=== PATIENT | male | born 2000 | race Caucasian/White ===

== ENCOUNTER 2019-06-20 07:17 | Day surgery (SDC) | payer OTHER ==
[~2019-06-20] VITALS: Ht 182.9 cm; Wt 68.7 kg
[2019-06-20] MEDS ORDERED: IBUP-1114 PO (07:24)
[2019-06-20] MEDS ORDERED: ONDANSETRON 4MG/2ML VIAL IV ONE (08:00)
[2019-06-20] MEDS ORDERED: NS 1,000 ML IV ONE (08:00)
[2019-06-20] MEDS ORDERED: MORPHINE 4 MG/ML 1ML VIAL/SYRINGE (J2270) IV ONE (08:00)
[2019-06-20 08:01] LABS: BASO # 0.1 10^3/uL (0.0-0.2); BASO % 0.9 % (0.0-1.0); EOS # 0.2 10^3/uL (0.0-0.5); EOS % 3.2 % (0.0-3.0); HEMATOCRIT 42.5 % (42.0-52.0); HEMOGLOBIN 14.7 g/dl (13.5-17.5); LYMPH # 1.5 10^3/uL (1.5-5.0); LYMPH % 27.7 % (24.0-44.0); MEAN CORPUSCULAR HEMOGLOBIN 29.1 pg (27.0-33.0); MEAN CORPUSCULAR HGB CONC 34.6 g/dl (32.0-36.5); MEAN CORPUSCULAR VOLUME 84.2 fl (80.0-96.0); MONO # 0.4 10^3/uL (0.0-0.8); MONO % 7.4 % (0.0-5.0); NEUTROPHILS # 3.2 10^3/uL (1.5-8.5); NEUTROPHILS % 60.6 % (36.0-66.0); PLATELET COUNT, AUTOMATED 186 10^3/uL (150-450); RED BLOOD COUNT 5.05 10^6/uL (4.30-6.10); WHITE BLOOD COUNT 5.3 10^3/uL (4.0-10.0)
--- NOTE | 2019-06-20 08:05 | REP ---
It forearm: Two views. History: Pain after trauma. Findings: AP and lateral views of the right forearm demonstrate a displaced comminuted and angulated fracture of the distal radial metaphysis described in the wrist radiographs. Ulnar styloid chip fracture is seen. No proximal radial or ulnar fracture is appreciated. Electronically Signed by Timothy Hitchcock MD 06/20/2019 07:56 A
[2019-06-20 08:19] LABS: BLOOD UREA NITROGEN 12 MG/DL (7-18); CARBON DIOXIDE LEVEL 25 MEQ/L (21-32); CHLORIDE LEVEL 107 MEQ/L (98-107); CREATININE FOR GFR 1.07 MG/DL (0.70-1.30); GLUCOSE, FASTING 114 MG/DL (70-100); POTASSIUM SERUM 3.2 MEQ/L (3.5-5.1); SODIUM LEVEL 142 MEQ/L (136-145)
--- NOTE | 2019-06-20 09:58 | REP ---
BILATERAL WRIST: EIGHT VIEWS. HISTORY: Trauma. FINDINGS: Four views of each wrist demonstrate overall normal mineralization. Left wrist is normal. No fracture or subluxation is seen. On the right, there is a comminuted displaced distal radial metaphyseal fracture with marked apex volar angulation, dorsal displacement, and overriding. There is an ulnar styloid chip fracture associated with this. No carpal fractures seen. IMPRESSION: No fracture noted on the left. Displaced angulated comminuted distal radial metaphyseal fracture on the right with associated ulnar styloid chip fracture. Electronically Signed by Timothy Hitchcock MD 06/20/2019 11:24 A
[2019-06-20] MEDS ORDERED: MORPHINE 2 MG/ML 1ML VIAL (J2270) IV ONE ×2 (10:15→13:30)
[2019-06-20] MEDS ORDERED: BUPIVACAINE/EPIN 0.25% 30 ML VIAL As Ordered ONE (16:42)
[2019-06-20] MEDS ORDERED: ceFAZolin 2 GM/D5W 50 ML IV BAG (J0690 PER 500MG) As Ordered ONE (16:53)
[2019-06-20] MEDS ORDERED: ACETAMINOPHEN 1000MG 100ML IV BTL (OFIRMEV) (J0131 PER 10MG) As Ordered ONE (17:03)
[2019-06-20] MEDS ORDERED: MIDAZOLAM INJ 2MG/2ML VIAL (J2250 PER 1MG) As Ordered ONE (17:03)
[2019-06-20] MEDS ORDERED: LIDOCAINE 2% 100MG/5ML SDV (FOR ANES.) As Ordered ONE (17:03)
[2019-06-20] MEDS ORDERED: propofoL 200 MG/20 ML VIAL As Ordered ONE (17:03)
[2019-06-20] MEDS ORDERED: fentaNYL 100 MCG/2 ML INJECTION (J3010) As Ordered ONE ×2 (17:03→17:05)
[2019-06-20] MEDS ORDERED: dexameTHASONE 4 MG/ML 1ML VIAL (J1100 PER 1MG) As Ordered ONE (17:03)
[2019-06-20] MEDS ORDERED: METOCLOPRAMIDE INJ 10MG/2ML VIAL (J2765 PER 1) As Ordered ONE (17:03)
[2019-06-20] MEDS ORDERED: ONDANSETRON 4MG/2ML VIAL As Ordered ONE (17:03)
[2019-06-20] MEDS ORDERED: DESFLURANE 240 ML INHALANT As Ordered ONE (17:23)
--- NOTE | 2019-06-20 18:20 | HPE ---
DATE OF ADMISSION: 06/20/2019 CHIEF COMPLAINT: Right distal radius fracture. HISTORY OF THE PRESENT ILLNESS: This is a 18-year-old man who is in the . 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 Sustained a displaced distal radius fracture on the right side. Seen at [facility] emergency department (ED). This happened just this morning. It was splinted. He has been nothing by mouth since this morning when he had a little bit of Gatorade. PAST MEDICAL HISTORY: Healthy. MEDICATIONS: None. ALLERGIES: No known drug allergies. SURGICAL HISTORY: None. SOCIAL HISTORY: He is in the . Nonsmoker. 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 He is from [place]. His set up person is his mother, Eleni. Her number [phone]. No previous injuries to the right upper extremity. PHYSICAL EXAM: He is a well appearing 18-year-old male, appears alert and oriented times three. He is laying supine in the bed. He responds appropriately. He has no obvious deformity of his right wrist. Typical dinner fork deformity. There is minor abrasion to the volar aspect of proximal wrist overlying the flexor carpi radialis (FCR) tendon but no open injury. He has difficulty wiggling his fingers and flexing and extending his thumb, but he is able to hold his thumb out. There is normal sensation in the radial and ulnar nerve distributions; however, he appears to have a dense median nerve palsy, but he does state that more so that all his fingers are numb. Strong radial pulse. Hands warm and well perfused. No pain in the hand. Forearm compartments are soft. No pain at the elbow. Radiographs reviewed of his right wrist - AP, lateral and oblique. This shows an obvious, what appears to be mostly extra-articular transverse fracture of the distal radius in the metaphyseal region. This was displaced almost 100% dorsally. There is a minor amount of comminution volarly and dorsally. There may be a small intra-articular fragment dorsally. ASSESSMENT/PLAN: This is a 18-year-old male with severely displaced, mostly extra-articular fracture of the distal end of the radius. We talked about the pros, the cons, the risks and benefits of nonsurgical management versus closed reduction and casting, as well as immediate open reduction internal fixation with volar plating. He would like to go ahead with surgery. Specific risks include, but not limited to, infection, pain, stiffness, bleeding, damage to surrounding structures, delayed, mal or nonunion, need for further surgery, irritation of the tendons, anesthetic complications, blood clots, and other risks. We will likely also go ahead with open carpal tunnel release given his median nerve symptoms. We signed the consent form for surgery, as well as possible need for blood products, and I explained the pros, cons, risks, benefits of that to him as well. I marked the right upper extremity. We will splint him in preparation for surgery and make him nothing by mouth for now, and I will try to find urgent time in the operating theater at [facility]. He had no further questions.
[2019-06-20] MEDS ORDERED: fentaNYL 100 MCG/2 ML INJECTION (J3010) IV PRN (19:30)
[2019-06-20] MEDS ORDERED: oxyCODONE 5MG TAB PO PRN (19:30)
[2019-06-20] MEDS ORDERED: LR 1,000 ML IV SCH ×2 (19:30→19:45)
[2019-06-20] MEDS ORDERED: ONDANSETRON 4MG/2ML VIAL IV PRN ×2 (19:30→19:45)
[2019-06-20] MEDS ORDERED: PERCOCET 5MG/325MG TAB PO PRN (19:45)
[2019-06-20] MEDS ORDERED: MORPHINE 4 MG/ML 1ML VIAL/SYRINGE (J2270) IV PRN (19:45)
[2019-06-20] MEDS ORDERED: ACETAMINOPHEN TAB 650MG DOSE (2X325MG) PO PRN (19:45)
[2019-06-20 23:00] VITALS: BP 121/65
--- NOTE | 2019-06-21 08:22 | RO ---
DATE OF PROCEDURE: 06/20/2019 PREOPERATIVE DIAGNOSIS: Right distal radius fracture and acute carpal tunnel syndrome. POSTOPERATIVE DIAGNOSIS: Right distal radius fracture and acute carpal tunnel syndrome. PLAN PROCEDURE: Right distal radius open reduction internal fixation, possible open carpal tunnel release. PROCEDURE PERFORMED: Right distal radius fracture open reduction internal fixation and open carpal tunnel release. SURGEON: Dr. Prasad Maza ANESTHESIOLOGIST: Dr. Valverde STRATEGIC MANAGER: None. ANESTHESIA: General anesthetic, OPERATIVE PREAMBLE: This 18-year-old male who is in the , after he had recently moved up to [place]. He fell on an outstretched hand this morning sustaining a displaced distal radius fracture. This was causing pressure on the median nerve per clinical exam. We talked about pros, cons, risks, benefits of nonsurgical management versus closed reduction versus open reduction internal fixation with volar plating and possible open carpal tunnel release. He wished to go ahead with surgery. Specific surgical risks were discussed include but not limited infection pain, stiffness bleeding, damage to other nerves, blood vessels, neurovascular injury, delayed, mal or nonunion, hardware and tendon irritation, complex regional pain syndrome, anesthetic complications, blood clots, among other risks. He wished to ahead. We signed consent form for surgery. Reiterated the risks in preoperative holding, marked the right upper extremity and proceeded to surgery. DESCRIPTION OF PROCEDURE: Patient was brought to the operating theater. Placed supine on the operating room table. An 18-inch wrap tourniquet was applied to the right upper extremity and appropriately padded. Hand tape was used to the patient's right side. The bed was turned at 90 degrees. 2 Grams IV Ancef was administered. General anesthesia was induced. The limb was prepped and draped the usual sterile fashion allowing over 3 minutes prep solution drying time. All bony prominences were appropriately padded. Preoperative time-out was performed to confirm the patient's site and the patient's surgery. The limb was exsanguinated with sterile Esmarch tourniquet and limb elevated tourniquet inflated to 250 mmHg. I began by making a standard 4-inch incision centered overlying the Flexor Carpi Radialis (FCR) tendon just proximal to the wrist crease. We carried dissection down through skin and subcutaneous tissue insuring meticulous hemostasis. Incised the fascia and tendon sheath overlying the FCR tendon repair. I incised the sub-sheath in line with the skin incision. I identified FCR muscle belly and retracted this ulnarly. Then used periosteal elevator to elevate the pronator quadratus muscle off the volar aspect of the distal radius. I identified the fracture site. I cleared radial intervals. Periosteum appeared adequate. I had to release this from the dorsal cortex. I thoroughly irrigated the fracture site. Achieved preliminary reduction of longitudinal traction and direct manipulation of the fracture. This was quite difficult as he did still have a thick periosteum. Achieved good reduction. I selected a [employer] pre-contoured VA locking plate two-hole proximally. Placed this on the bone surface. I inserted the oblong 2.4 mm cortical screw; did not fully tightness down. I then used a 1.25-mm wire to secure the plate to the bone and secure rotation. Took AP lateral radiographs to ensure plate position on the bone. I then inserted the four distal locking screws. This measured anywhere between 20-22 mm. I took a true lateral joint view of 30 degrees tilt to ensure that none of the screws were correct. Reduction looked nice. I then fully seated the cortical positional screw. This achieved nice reduction. The then inserted the proximal locking screw as well to fully seat the plate onto the bone. Took final radiographs, AP lateral and oblique. I then saved these onto the system. I also took a 30-degree true lateral view. I then turned my attention to the carpal tunnel. I made a small 2 cm incision overlying the transverse carpal ligament in line with 4th digit. Carried dissection down through skin and subcutaneous tissue and achieved meticulous hemostasis. I incised the palmar fascia, elevated a small amount of flexor pollicis brevis (FPB) muscle belly and then incised the transverse carpal tunnel ligament in line with the skin incision, fully proximally and distally. I thoroughly irrigated this wound. I left the tourniquet down. Bleeding was hemostased. Closed subcutaneous tissue with interrupted #2-0 Vicryl suture and skin with running #3-0 Monocryl. 12 mL of 0.25% Marcaine with epinephrine was instilled in and around the incision sites. Skin was closed with running #3-0 Monocryl. Steri-Strips were applied after the wound was cleaned with dry dressing. Adaptic 4 x 8 gauze as well as ABD dressing. Sterile cast padding was applied as well as a volar plaster of estephania splint to the wrist in neutral. This was overwrapped with sterile 6-inch tiana bandage. The splint was allowed to harden. The patient's tourniquet was taken down prior to the end of the case and removed. Total tourniquet time 75 minutes. Patient was woken up from the general anesthetic, transferred off the operating table and taken postanesthetic care unit in stable condition. All sponge, needle, and instrument counts were correct. No complications. Estimated blood loss 50 mL. PLAN: The patient to be discharged home per same day surgery criteria. Given this prescription for Percocet 30 tablets 5/325 mg. The patient should elevate the wrist start immediate finger and elbow exercises with no heavy lifting or gripping with the upper extremity. I have communicated with the patient's mom Eleni. I would like to see the patient is to weeks' time and keep the splint until that time and keep it clean and dry.
--- NOTE | 2019-06-21 08:23 | REP ---
Clinical: Status post open fixation. Technique: Intraoperative fluoroscopic imaging using portable C-arm technique. Findings: Evidence for satisfactory reduction and open fixation for distal radial metaphyseal fracture. Small ulnar styloid fracture noted. Total fluoroscopic time 1 minute. Impression: Satisfactory open reduction and fixation. Electronically Signed by Armani Osorio MD 06/21/2019 08:15 A
== END 2019-06-20 23:30 | disposition home or self-care (01) ==
LOC: M ED 07:17 → M SDC 15:33
PROVIDERS: ATTEND Orthopaedic Surgery Sports Medicine
DX: S52.551A Other extraarticular fracture of lower end of right radius, initial encounter for closed fracture (principal); W01.0XXA Fall on same level from slipping, tripping and stumbling without subsequent striking against object, initial encounter; Y92.138 Other place on military base as the place of occurrence of the external cause; Y99.1 Military activity; G56.01 Carpal tunnel syndrome, right upper limb; Y93.89 Activity, other specified; Z91.81 History of falling
CPT/HCPCS: 25607; 64721; 73090; 73110; 76000; 80048; 85025; 96361; 96374; 96375; 96376; 99285; C1713; J0131; J0690; J1100; J2250; J2270; J2405; J2765; J3010; U0002

== ENCOUNTER 2021-09-29 15:41 | Emergency (ER) | payer OTHER ==
[~2021-09-29] VITALS: Ht 185.4 cm; Wt 60.1 kg
[~2021-09-29 15:41] MED LIST: IBUP-1114 PO
[2021-09-29 18:00] LABS: BACTERIA, URINE NONE SEEN; MUCUS, URINE SMALL AMOUNT (NEGATIVE); RBC, URINE 0-1 /hpf (0-3)
[2021-09-29 18:56] LABS: GC DNA AMPLIFICATION NEGATIVE (NEGATIVE)
[2021-09-29 19:04] LABS: HYALINE CAST, URINE NONE SEEN /lpf (0-1); SQUAMOUS EPITHELIAL CELL URINE NONE SEEN /hpf (SMALL AMT)
[2021-09-29] MEDS ORDERED: DOXY-443 PO (23:49)
[2021-09-29] MEDS ORDERED: DOXYCYCLINE HYCLATE 100MG TABLET PO ONE (23:55)
[2021-09-29 23:59] VITALS: BP 119/70
== END 2021-09-30 | disposition home or self-care (01) ==
LOC: M ED 15:41
DX: N45.1 Epididymitis (principal); A74.9 Chlamydial infection, unspecified